=== PATIENT | male | born 1955 ===

== ENCOUNTER 2017-03-20 08:20 | Emergency (ER) | payer MEDICAID, OTHER ==
[2017-03-20 08:31] VITALS: TEMP 98.3; BMI 31.0
--- NOTE | 2017-03-20 09:49 | C.PDOC ---
History Of Present Illness 61-year-old male, PMHx includes gout, presents to the emergency department with complaints of right elbow pain that started three days ago and has been progressively worsening. Patient notes that he frequently lifts heavy objects at work and is concerned he pulled a muscle. Also notes that he has a Hx of gout and normally gets it in the knees. Notes he usually take colchicine but ran out. No fever or direct trauma. Time Seen by Provider: 03/20/17 08:42 Chief Complaint (Nursing): Upper Extremity Problem/Injury History Per: Patient History/Exam Limitations: no limitations Onset/Duration Of Symptoms: Days Past Medical History Reviewed: Historical Data, Nursing Documentation, Vital Signs Vital Signs: Last Vital Signs Temp 98.3 F 03/20/17 08:26 Pulse 83 03/20/17 10:13 Resp 20 03/20/17 10:13 BP 160/72 H 03/20/17 10:13 Pulse Ox 99 03/20/17 10:27 - Medical History PMH: Arthritis, HTN, Hypercholesterolemia Family History: States: Unknown Family Hx - Social History Hx Alcohol Use: No Hx Substance Use: No - Immunization History Hx Tetanus Toxoid Vaccination: No Hx Influenza Vaccination: No Hx Pneumococcal Vaccination: No Review Of Systems Except As Marked, All Systems Reviewed And Found Negative. Constitutional: Negative for: Fever Gastrointestinal: Negative for: Nausea, Vomiting Musculoskeletal: Positive for: Other (right elbow pain.) Neurological: Negative for: Weakness, Numbness Physical Exam - Physical Exam Appears: Non-toxic, No Acute Distress Skin: Warm, Dry, No Rash Head: Atraumatic, Normacephalic Eye(s): bilateral: Normal Inspection, EOMI Nose: Normal Oral Mucosa: Moist Neck: Normal ROM, Supple Chest: Symmetrical Respiratory: No Accessory Muscle Use Extremity: Normal ROM, Tenderness, Capillary Refill (<2 seconds), No Deformity, No Swelling, Other (Right elbow: TTP, swelling and mild warmth to the lateral eblow, not affecting joint. (+) FROM though ellicts pain) Pulses: Left Radial: Normal, Right Radial: Normal Neurological/Psych: Oriented x3, Normal Speech, Normal Motor, Normal Sensation ED Course And Treatment O2 Sat by Pulse Oximetry: 99 Progress Note: Patients x-ray is negative for fracture. Discussed with pt signs and symptoms appear to be 2nd to gout though cellulitus can not be ruled out therefore will be treated to abx. Sling applied by automated equipment engineer technician and pt instructed to f/u outpatient with PMD. Disposition - Disposition Referrals: Diogenes Hargrove DO [[facility]] - Geovanny Tao MD [Staff Provider] - Disposition: HOME/ ROUTINE Disposition Time: 09:42 Condition: STABLE Additional Instructions: Follow up with your primary medical doctor or clinic in 2-5 days for further evaluation. Take medications as prescribed. Return to the emergency department at any time if symptoms persist or worsen. Prescriptions: Clindamycin [Cleocin] 300 mg PO QID #28 cap Colchicine [Colcrys] 0.6 mg PO BID #10 tablet Indomethacin [Indocin] 25 mg PO TID #20 cap Instructions: Gout (ED) Forms: Work Excuse - Clinical Impression Clinical Impression: Gout, Elbow pain - Scribe Statement The provider has reviewed the documentation as recorded by the Scribe Mai Tao All medical record entries made by the Scribe were at my direction and personally dictated by me. I have reviewed the chart and agree that the record accurately reflects my personal performance of the history, physical exam, medical decision making, and the department course for this patient. I have also personally directed, reviewed, and agree with the discharge instructions and disposition.
[2017-03-20 10:13] VITALS: BP 160/72; PULSE 83; RESP 20
[2017-03-20 10:23] VITALS: O2SAT 99
--- NOTE | 2017-03-20 11:08 | RAD ---
PROCEDURE: Radiographs of the right elbow. HISTORY: Pain. No history of recent/ related trauma provided COMPARISON: No prior. FINDINGS: BONES: Normal. No fracture. JOINTS: Normal. No osteoarthritis. SOFT TISSUES: Soft tissue swelling adjacent to the lateral epicondyle and humeral head. Amorphous calcifications within the soft tissues noted. JOINT EFFUSION: None. OTHER FINDINGS: None. IMPRESSION: Soft tissue swelling without acute articular or osseous abnormality.
== END 2017-03-20 10:14 | disposition home or self-care (01) ==
LOC: C.ER 08:20
DX: M10.9 Gout, unspecified (principal)